=== PATIENT | female | born 1990 | race Caucasian/White ===

== ENCOUNTER 2018-12-21 20:58 | Inpatient (IN) | payer OTHER ==
[~2018-12-21] VITALS: Ht 157.5 cm; Wt 65.8 kg
[~2018-12-21 20:58] MED LIST: TOPROL XL25 M1; ULTRAM50 MG PO
--- NOTE | 2018-12-21 21:13 | NUR ---
PTE REFIERE QUE SE LE TOCABA EN 8 BURNS LA MESTRUCCION CHEVY LE BAJO HOY,PTE REFIERE MUCHO DOLOR PELVICO Y DE ESPALDA.
--- NOTE | 2018-12-21 22:15 | NUR ---
SE ORIENTA SOBRE EL TX. SE EXTRAEN MUESTRAS DE MADHU BAJO MEDIDAS ASEPTICAS SE ROTULAN Y ENVIAN AL LABORATORIO. SE CANALIZA Y COLOCA IV. PTE REHUSA MEDICAMENTOS.
--- NOTE | 2018-12-22 07:48 | NUR ---
SE ORIENTA A PTE SOBRE PROCESO DE LEE DE MUESTRA Y ADMINISTRACION DE MEDICAMENTO TYLENOL 1,000MG PO & PREMARIN 25MG EL CUAL REHUSA YA QUE REFIERE NO SABER SI LE CAUSARA PALPITACIONES SE INFORMA A MEDICO DE TURNO.
[2018-12-25] MEDS ORDERED: INTEGRA PLUS C1 EACH PO (07:14)
[2018-12-25] MEDS ORDERED: LOW-OGESTREL-21 EACH PO (07:15)
[2018-12-25] MEDS ORDERED: FAMOTIDINE20 MG PO (07:15)
== END 2018-12-25 10:26 | disposition home or self-care (01) | DRG 761 ==
LOC: ER 20:58 → OB/GYN 12-22 09:19 → SEC-K 12-22 09:19 → OB/GYN 12-22 11:17
PROVIDERS: ADMIT Obstetrics & Gynecology
PROC: 30233N1 Transfusion of Nonautologous Red Blood Cells into Peripheral Vein, Percutaneous Approach (ICD-10-PCS; principal; 2018-12-22)
PROC: BU46ZZZ Ultrasonography of Uterus (ICD-10-PCS; 2018-12-24)
PROC: BT4JZZZ Ultrasonography of Kidneys and Bladder (ICD-10-PCS; 2018-12-24)
DX: N92.1 Excessive and frequent menstruation with irregular cycle (principal); D50.0 Iron deficiency anemia secondary to blood loss (chronic); I10 Essential (primary) hypertension

== ENCOUNTER 2022-11-24 13:40 | Emergency (ER) | payer OTHER ==
[~2022-11-24] VITALS: Ht 160 cm; Wt 63.5 kg
[~2022-11-24 13:40] MED LIST changes: +FAMOTIDINE20 MG PO; +INTEGRA PLUS C1 EACH PO; +LOW-OGESTREL-21 EACH PO
[2022-11-24] MEDS ORDERED: TOPROL XL50 M1 PO (14:08)
[2022-11-24] MEDS ORDERED: INTESTINEX680 M1 PO (18:38)
[2022-11-24] MEDS ORDERED: PEPCID AC20 MG PO (18:38)
[2022-11-24] MEDS ORDERED: LEVSIN/SL0.125 MG SL (18:38)
== END 2022-11-24 19:09 | disposition home or self-care (01) ==
LOC: ER 13:40
DX: K52.89 Other specified noninfective gastroenteritis and colitis (principal); Z88.0 Allergy status to penicillin; Z91.040 Latex allergy status